=== PATIENT | male | born 1995 | race Caucasian/White ===

== ENCOUNTER 2020-06-27 12:18 | Inpatient (IN) ==
[~2020-06-27 12:18] MED LIST: ZINC SULFATE 220 MG CAPSULE PO SCH
[2020-06-27] MEDS ORDERED: AZITHROMYCIN 250 MG TABLET PO STA (14:11)
[2020-06-27] MEDS ORDERED: cefTRIAXone 1,000 MG in SODIUM CHLORIDE 0.9% 100 ML IV STA (14:11)
[2020-06-27 15:56] LABS: Basophils % 0.2 % (0.0-0.8); Eosinophils % 0.2 % (0.00-10.9); Hematocrit 48.7 VOL% (42.0-52.0); Hemoglobin 16.3 GM/DL (14.0-18.0); Immature Granulocytes % 0.4 %; Immature Granulocytes Absolute 0.02 #; Lymphocytes # 1.5 10*3/uL (1.4-4.0); Lymphocytes % 31.2 % (21.2-54.2); Mean Corpuscular HGB Conc 33.5 GM/DL (32-36); Mean Corpuscular Volume 94.7 FL (87-102); Mean Platelet Volume 9.6 FL (9.6-12.0); Monocytes % 15.9 % (1.7-12.7); Neutrophils % 52.1 % (38.7-73.9); Platelet Count 234 T/CUMM (130-400); Red Blood Count 5.14 MC/CUMM (3.8-5.5); Red Cell Distribution Width 11.9 % (9.3-17.3); White Blood Count 4.8 T/CUMM (4-12)
[2020-06-27 16:14] LABS: Bilirubin,Total 0.8 MG/DL (0.2-1.0); Calcium 8.3 MG/DL (8.5-10.1); Osmolality,Calculated 267.1 MOS/KG (273-304); Total Protein 7.1 G/DL (6.4-8.3)
[2020-06-27 16:19] LABS: Atypical Lymphocytes 1+; Band Neutrophils 1 % (0-10); Lymphocytes 21 % (20-55); Platelet Estimate Adequate; Segmented Neutrophils 63 % (50-85); Smudge Cells Few; Total Cells Counted 100
[2020-06-27] MEDS ORDERED: DEXTROSE 50% 25 GM/50 ML VIAL IV PRN (17:47)
[2020-06-27] MEDS ORDERED: ACETAMINOPHEN 325 MG TABLET PO PRN (17:47)
[2020-06-27] MEDS ORDERED: GLUCAGON 1 MG VIAL IM PRN (17:47)
[2020-06-27] MEDS ORDERED: DEXAMETHASONE 4 MG/1 ML VIAL IV SCH (18:00)
[2020-06-27] MEDS ORDERED: ENOXAPARIN 40 MG/0.4 ML SYRINGE SUBCUT SCH (21:00)
[2020-06-28] MEDS: ALBUTEROL INHALER 18 GM INH SCH ×3 (00:52→12:45)
[2020-06-28 06:54] LABS: Basophils % 0.4 % (0.0-0.8); Hematocrit 48.8 VOL% (42.0-52.0); Hemoglobin 16.6 GM/DL (14.0-18.0); Immature Granulocytes % 0.8 %; Immature Granulocytes Absolute 0.02 #; Lymphocytes # 0.9 10*3/uL (1.4-4.0); Lymphocytes % 36.1 % (21.2-54.2); Mean Corpuscular Volume 93.8 FL (87-102); Mean Platelet Volume 9.8 FL (9.6-12.0); Monocytes % 16.4 % (1.7-12.7); Neutrophils % 46.3 % (38.7-73.9); Platelet Count 245 T/CUMM (130-400); Red Cell Distribution Width 11.9 % (9.3-17.3); White Blood Count 2.4 T/CUMM (4-12)
[2020-06-28 07:38] LABS: Band Neutrophils 1 % (0-10); Lymphocytes 31 % (20-55); Platelet Estimate Normal; Segmented Neutrophils 50 % (50-85); Total Cells Counted 100
[2020-06-28] MEDS ORDERED: PANTOPRAZOLE 40 MG TABLET PO SCH (09:00)
[2020-06-28] MEDS ORDERED: ZINC SULFATE 220 MG CAPSULE PO SCH (09:00)
[2020-06-28 10:18] LABS: Albumin 3.1 G/DL (3.4-5.0); Bilirubin,Total 0.8 MG/DL (0.2-1.0); Calcium 8.3 MG/DL (8.5-10.1); Osmolality,Calculated 274.7 MOS/KG (273-304); Total Protein 7.4 G/DL (6.4-8.3)
[2020-06-28 10:42] LABS: Ferritin 2399.6 ng/ml (26-388)
[2020-06-28] MEDS ORDERED: cefTRIAXone 1,000 MG in SYRINGE 1 EACH IV SCH (15:00)
[2020-06-28 16:37] VITALS: BP 131/75
[2020-06-28] MEDS ORDERED: AZITHROMYCIN 250 MG TABLET PO SCH (17:00)
== END 2020-06-28 18:00 | disposition home or self-care (01) | DRG 177 ==
LOC: N.ED 12:18 → N.EDINP 17:47 → N.2E 20:00
PROVIDERS: ADMIT Internal Medicine; ATTEND Internal Medicine